=== PATIENT | male | born 1990 | race African-American/Black ===

== ENCOUNTER 2023-11-04 02:08 | Emergency (ER) | payer BC, MEDICAID, OTHER ==
[~2023-11-04] VITALS: Ht 182.9 cm; Wt 86.0 kg
[~2023-11-04 02:08] MED LIST: MIRT-144
[2023-11-04 02:14] VITALS: TEMP 98.1; O2SAT 100
[2023-11-04] MEDS ORDERED: IBUPROFEN 800MG TABLET PO ONE (04:00)
[2023-11-04 04:30] VITALS: BP 130/80; PULSE 80; RESP 14
[2023-11-04] MEDS: IBUPROFEN 800MG TABLET PO NR (04:30)
[2023-11-04] MEDS ORDERED: IBUP-2030 MT (05:39)
== END 2023-11-04 06:42 | disposition home or self-care (01) ==
LOC: ER 02:08
DX: S99.922A Unspecified injury of left foot, initial encounter (principal); Z86.59 Personal history of other mental and behavioral disorders; W22.8XXA Striking against or struck by other objects, initial encounter; Y93.89 Activity, other specified; Y92.89 Other specified places as the place of occurrence of the external cause; Y99.8 Other external cause status
CPT/HCPCS: 73630; 99283